=== PATIENT | female | born 1945 | race Caucasian/White ===

== ENCOUNTER → 2020-07-13 14:50 | Outpatient (CLI) | payer MEDICARE, OTHER, SELFPAY ==
--- NOTE | 2020-07-13 | DI.MRI.S_ITS ---
PROCEDURE: MR CERVICAL SPINE WO CON INDICATIONS: cervicalgia TECHNIQUE: Noncontrast sagittal T1 spin echo and T2 fast spin echo, sagittal STIR, foraminal oblique sagittal T2 fast spin echo, and axial gradient echo or T2 fast spin echo through the cervical spine. COMPARISON: [facility] [place], CR, XR CERVICAL SPINE 2 OR 3 VIEWS, 07/06/2020, 14:07. FINDINGS: Image quality: Excellent. Alignment and Curvature: Mild degenerative retrolisthesis of C6 on C7. Mild degenerative anterolisthesis of C4 on C5 and of C3 on C4. Bone Marrow: Marrow demonstrates normal overall signal. Spinal Cord: Visualized spinal cord has normal size and signal. No cerebellar tonsillar herniation. Paraspinous Soft Tissues: No paravertebral masses. Prevertebral soft tissues are normal in thickness. C2-C3: No central canal stenosis. Right facet hypertrophy results in moderate right foraminal narrowing and flattening deformity on the exiting right C3 nerve root. C3-C4: No central canal stenosis. Disc bulge. Large left uncovertebral joint osteophyte and prominent left facet hypertrophy results in severe left foraminal narrowing and impingement on the exiting left C4 nerve root. C4-C5: Mild anterolisthesis of C4 on C5. Posterior disc plus osteophyte. AP diameter of the canal is 1.2 cm. No canal stenosis. Bilateral uncovertebral joint hypertrophy. Exuberant left facet hypertrophy. Moderate right foraminal narrowing with flattening deformity on the exiting right C5 nerve root. Severe left foraminal narrowing with left foraminal C5 nerve root impingement. C5-C6: Posterior disc plus osteophyte. Flattening of the anterior aspect of the cord. However, the AP diameter of the canal is 1.2 cm. No central canal stenosis. Bilateral uncovertebral joint hypertrophy. Left facet hypertrophy. Moderate right foraminal narrowing with flattening deformity on the exiting right C5 nerve root. Moderate to severe left foraminal narrowing with impingement on the exiting left C5 nerve root. C6-C7: Mild retrolisthesis of C6 on C7. Mild central posterior disc protrusion, flattening the cord. Mild to moderate canal stenosis. AP diameter of the canal is 9 mm. Bilateral uncovertebral joint hypertrophy. Mild bilateral facet hypertrophy. Moderate right foraminal narrowing with mild flattening deformity on the exiting right C7 nerve root. Moderate to severe left foraminal narrowing with flattening deformity on the exiting left C7 nerve root. C7-T1: No central canal stenosis. Rmas-af-iorhhsec bilateral foraminal narrowing. IMPRESSION: 1. There is diffuse cervical spondylitic change. 2. There is multilevel cervical arthropathy, including multilevel very prominent left cervical arthropathy. 3. Significant multilevel bilateral foraminal narrowing as described above, left greater than right. 4. Mild to moderate canal stenosis at C6-C7. Dictated by: Dakota Giordano M.D. on 07/14/2020 at 10:59 Approved by: Dakota Giordano M.D. on 07/14/2020 at 11:12
== END ==
PROVIDERS: Family Provider Family Medicine; PCP Family Medicine; Referring Provider Orthopaedic Surgery; Visit Provider Orthopaedic Surgery
DX: M48.02 Spinal stenosis, cervical region (principal); M54.2 Cervicalgia
CPT/HCPCS: 72141